=== PATIENT | female | born 1990 | race Caucasian/White ===

== ENCOUNTER 2017-05-30 14:13 | Emergency (ER) | payer MEDICAID ==
[~2017-05-30] VITALS: Ht 157.5 cm; Wt 60.8 kg
[2017-05-30 14:28] VITALS: Ht 157.5 cm; Wt 60.8 kg
[2017-05-30 15:46] LABS: microscopic required? NO
[2017-05-30 15:55] LABS: BASOPHIL % 0.1 % (0-2); PLATELET COUNT 280 x10^3mcL (130-400); RED CELL DISTRIBUTION WIDTH 13.3 % (11.5-14.5)
[2017-05-30 15:57] LABS: UA SPECIFIC GRAVITY 1.015 (1.005-1.035); urine erythrocyte NEGATIVE (NEGATIVE)
[2017-05-30 16:05] LABS: ALBUMIN 3.5 g/dL (3.4-5.0); ALKALINE PHOSPHATASE 184 U/L (46-116); ALT/SGPT 422 U/L (14-59); AST/SGOT 223 U/L (15-37); BILIRUBIN TOTAL 1.2 mg/dL (0.20-1.00); CALCIUM 8.9 mg/dL (8.5-10.1); CARBON DIOXIDE 23.7 mmol/L (21-32); CHLORIDE SERUM 100 mmol/L (98-107); CREATININE SERUM 0.6 mg/dL (0.6-1.0); GFR1 > 60 mL/min; GLUCOSE SERUM 200 mg/dL (74-106); LIPASE 136 IU/L (73-393); SODIUM SERUM 134 mmol/L (136-145); TOTAL PROTEIN, SERUM 7.1 g/dL (6.4-8.2)
[2017-05-30 16:06] LABS: AMPHETAMINE QUAL UR NONE DETECTED (NEG <=1000)
[2017-05-30 16:07] LABS: AMYLASE 21 U/L (25-115)
[2017-05-30 16:08] LABS: POTASSIUM SERUM 2.8 mmol/L (3.5-5.1)
[2017-05-30 18:29] VITALS: BP 101/64
== END 2017-05-30 18:29 | disposition home or self-care (01) ==
LOC: ED 14:13
PROVIDERS: Emergency Medicine
DX: K80.20 Calculus of gallbladder without cholecystitis without obstruction (principal); E87.6 Hypokalemia; F45.8 Other somatoform disorders; E78.00 Pure hypercholesterolemia, unspecified; E11.9 Type 2 diabetes mellitus without complications
CPT/HCPCS: 36600; J2270; J2405; J3480; J7030; Q0092